=== PATIENT | female | born 1960 ===

== ENCOUNTER 2017-09-08 23:33 | Emergency (ER) | payer OTHER ==
[2017-09-08 23:43] VITALS: BP 137/83; PULSE 86; RESP 20; TEMP 100.7; O2SAT 99
[2017-09-08] MEDS ORDERED: Albuterol-Ipratrop 3 mg / 0.5 (3 ml) UD ONE (23:50)
--- NOTE | 2017-09-08 23:56 | C.PDOC ---
History Of Present Illness 56 yo female come in for evaluation of chills, bodyaches developed since today AM. Pt admits, had tooth removed yesterday, taking Amoxicillin now as per Dentist request. Pt denies headache, dizziness, intraoral pain over extraction site, facial swelling, drooling, trismus, earache, cough, neck pain, CP, SOB, dyspnea, diaphoresis, palpitation, N/V/D, UTI sx. Ambulate to ED for evaluation , not in any apparent distress. Time Seen by Provider: 09/08/17 23:40 Chief Complaint (Nursing): Dental Pain History Per: Patient Past Medical History Reviewed: Historical Data, Nursing Documentation, Vital Signs Vital Signs: Last Vital Signs Temp 100.7 F H 09/08/17 23:37 Pulse 86 09/08/17 23:37 Resp 20 09/08/17 23:37 BP 137/83 09/08/17 23:37 Pulse Ox 99 09/08/17 23:58 - Medical History PMH: HTN, Osteoporosis Denies: Chronic Kidney Disease Family History: States: No Known Family Hx - Social History Hx Alcohol Use: No Hx Substance Use: No - Immunization History Hx Tetanus Toxoid Vaccination: No Hx Influenza Vaccination: No Hx Pneumococcal Vaccination: No Review Of Systems Except As Marked, All Systems Reviewed And Found Negative. Constitutional: Positive for: Fever, Chills, Malaise ENT: Negative for: Ear Discharge, Nose Discharge, Nose Congestion, Throat Pain, Throat Swelling Cardiovascular: Negative for: Chest Pain, Palpitations Respiratory: Negative for: Cough, Shortness of Breath, Wheezing Gastrointestinal: Negative for: Nausea, Vomiting, Abdominal Pain, Diarrhea Genitourinary: Negative for: Dysuria Musculoskeletal: Negative for: Neck Pain, Back Pain Skin: Negative for: Rash Neurological: Negative for: Weakness, Numbness, Altered Mental Status, Headache , Dizziness Physical Exam - Physical Exam Appears: Well, Non-toxic, No Acute Distress Skin: Normal Color, Warm, Dry, No Rash Head: Normacephalic Eye(s): bilateral: PERRL Ear(s): Bilateral: Normal Nose: No Flaring, No Discharge Oral Mucosa: Moist, No Drooling, No Trismus Tongue: Normal Appearing Lips: Normal Appearing Gingiva: No Erythema, No Swelling, No Bleeding, No Abscess, Other (Left lower wisdom tooth extracted, gingiva closed with sutures, no edema, tenderness or erythema, no discharges.) Throat: No Erythema, No Exudate, No Drooling Neck: Trachea Midline, Supple Lymphatic: No Adenopathy (cervical) Cardiovascular: Rhythm Regular Respiratory: No Decreased Breath Sounds, No Accessory Muscle Use, No Stridor, No Wheezing Gastrointestinal/Abdominal: Soft, No Tenderness, No Distention, No Guarding Back: No CVA Tenderness Extremity: Normal ROM, No Deformity, No Swelling Neurological/Psych: Oriented x3, Normal Speech ED Course And Treatment O2 Sat by Pulse Oximetry: 99 Pulse Ox Interpretation: Normal Progress Note: On re-evaluation, pt is awake, comfortable, not in any apparent distress. Fever improved, hemodynamicaly stable. Non-toxic. tolerate PO well in ED. PUlseOx 99% RA. Neck: SUpple, (-) meningeal sign. ENT: No acute findings. neck: SUpple, (-) meningeal sign. LUngs: CTA B/L, BS equal B/L. Abd: benign. Neuorlogicaly intact. Influenza A (-). Pt has clinical findings c/w viral illness. Ptt advised. ref. to F/u with PMD in 2-3 days for re-eavl. return if any new changes. Disposition Counseled Patient/Family Regarding: Diagnosis, Need For Followup - Disposition Referrals: Ravinder Mullins MD [Staff Provider] - Disposition: HOME/ ROUTINE Disposition Time: 00:09 Condition: STABLE Additional Instructions: Encourage fluids Take antibiotic as initiated by Dentist TYlenol and/or Ibuprofen as need for pain Follow up with PMD in 2-3 days for re-evaluation. Return to ED if any worsening or new changes. Instructions: Viral Syndrome (ED) Forms: [employer] ([place]ali) - Clinical Impression Clinical Impression: Viral illness
== END 2017-09-09 00:15 | disposition home or self-care (01) ==
LOC: C.ER 23:33
DX: B34.9 Viral infection, unspecified (principal)